=== PATIENT | female | born 2000 | race African-American/Black ===

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

== ENCOUNTER 2018-02-24 12:31 | Observation (INO) | payer MEDICAID, OTHER ==
[~2018-02-24] VITALS: Ht 157.5 cm; Wt 57.6 kg
[2018-02-24] MEDS ORDERED: PREN-52 MT (13:33)
[2018-02-24] MEDS ORDERED: CEPH500C2 MT (13:34)
[2018-02-24] MEDS ORDERED: LACTATED RINGERS 1,000 ML IV SCH (13:45)
== END 2018-02-24 16:40 | disposition home or self-care (01) ==
LOC: L&D 12:31
PROVIDERS: ADMIT Obstetrics & Gynecology; ATTEND Obstetrics & Gynecology
DX: O62.9 Abnormality of forces of labor, unspecified (principal); O46.93 Antepartum hemorrhage, unspecified, third trimester; Z3A.30 30 weeks gestation of pregnancy
CPT/HCPCS: G0378 ×2; 99281; J7120

== ENCOUNTER 2018-05-15 18:40 | Emergency (ER) | payer MEDICAID ==
[~2018-05-15] VITALS: Ht 157.5 cm; Wt 58.0 kg
[~2018-05-15 18:40] MED LIST: CEPH500C2 MT; PREN-52 MT
[2018-05-15 22:13] LABS: CLARITY URINE CLEAR (CLEAR); COLOR URINE YELLOW (YELLOW); KETONES URINE NEGATIVE (NEGATIVE); LEUKOCYTE ESTERASE URINE 3+ (NEGATIVE); NITRITE URINE NEGATIVE (NEGATIVE); OCCULT BLOOD URINE 2+ (NEGATIVE); PH URINE 5.5 (4.5-8.0); PROTEIN URINE NEGATIVE (NEGATIVE); SPECIFIC GRAVITY URINE 1.017 (1.005-1.030); UROBILINOGEN URINE 0.2 E.U./dL (0.2-1.0)
[2018-05-16 00:26] VITALS: BP 120/80
== END 2018-05-16 00:17 | disposition left against medical advice (07) ==
LOC: ER 18:58
DX: Z53.21 Procedure and treatment not carried out due to patient leaving prior to being seen by health care provider (principal); N93.9 Abnormal uterine and vaginal bleeding, unspecified
CPT/HCPCS: 81025

== ENCOUNTER 2018-11-10 18:03 | Emergency (ER) | payer MEDICAID ==
[~2018-11-10] VITALS: Ht 167.6 cm; Wt 45.0 kg
[2018-11-10] MEDS ORDERED: HYDROCODONE/ACETAMINOPHEN 5/325MG TABLET PO ONE (20:00)
[2018-11-10 21:44] VITALS: BP 122/76
== END 2018-11-10 21:46 | disposition home or self-care (01) ==
LOC: ER 18:03
DX: S60.012A Contusion of left thumb without damage to nail, initial encounter (principal); W23.0XXA Caught, crushed, jammed, or pinched between moving objects, initial encounter; Y93.89 Activity, other specified; Y92.89 Other specified places as the place of occurrence of the external cause; Y99.8 Other external cause status
CPT/HCPCS: 29130; 73140; 99283